=== PATIENT | female | born 1970 | race Caucasian/White ===

== ENCOUNTER 2017-06-17 05:12 | Emergency (ER) | payer BC ==
[2017-06-17 05:20] VITALS: BP 138/70; PULSE 78; RESP 20; TEMP 98
[2017-06-17] MEDS ORDERED: ONDANSETRON ODT 4 MG TAB PO STA (05:38)
--- NOTE | 2017-06-17 05:43 | ED ---
ENT HPI - General Chief complaint: ENT Stated complaint: nose bleed Time Seen by Provider: 06/17/17 05:23 Source: patient, family Mode of arrival: ambulatory Limitations: no limitations - History of Present Illness Initial comments: 47 years old presents with the nosebleed patient was seen in the ER earlier today the afternoon one side of the nose was bleeding packing was done with the infusion therapy device taken it started bleeding from the other side now both sides have inflatable devices arriving no cyanosis patient feels it is some bleeding in the back of the throat, patient is not on any blood thinners and patient denies any trauma to the nose review of system is unremarkable otherwise - Related Data Home Medications Medication Instructions Recorded Confirmed Citrucel 1 appful PO DAILY 10/13/14 06/17/17 Fexofenadine HCl [Estelle Allergy] 180 mg PO DAILY 10/13/14 06/17/17 Fluticasone Nasal [place] [Flonase 1 spr EA NOSTRIL QAM 10/13/14 06/17/17 Nasal [place]] Lansoprazole [Lansoprazole] 30 mg PO BID 10/13/14 06/17/17 Meclizine [Antivert] 25 mg PO DIRECTED PRN 10/13/14 06/17/17 Montelukast [Singulair] 10 mg PO HS 10/13/14 06/17/17 Testosterone Cypionate 0.5 ml INJ [id number] 10/13/14 06/17/17 [Depo-Testosterone] Allergies Allergy/AdvReac Type Severity Reaction Status Date / Time azithromycin Allergy Unknown Verified 06/17/17 05:28 clindamycin Allergy Chest Pain Verified 06/17/17 05:28 levofloxacin [From Levaquin] Allergy Unknown Verified 06/17/17 05:28 morphine Allergy Unknown Verified 06/17/17 05:28 Penicillins Allergy Chest Pain Verified 06/17/17 05:28 Review of Systems ROS Statement: Those systems with pertinent positive or pertinent negative responses have been documented in the HPI. ROS Other: All systems not noted in ROS Statement are negative. Past Medical History Past Medical History: GERD/Reflux Additional Past Medical History / Comment(s): IBS, ALLERGIES, History of Any Multi-Drug Resistant Organisms: None Reported Past Surgical History: Adenoidectomy, Breast Surgery, Ear Surgery Additional Past Surgical History / Comment(s): HAS HAD TUBES IN EARSX3, sinus surgery, double masectomy Past Anesthesia/Blood Transfusion Reactions: No Reported Reaction Past Psychological History: No Psychological Hx Reported Smoking Status: Former smoker Past Alcohol Use History: None Reported Past Drug Use History: None Reported - Past Family History Brother(s) Family Medical History: Cancer Additional Family Medical History / Comment(s): COLON Sister(s) Family Medical History: Cancer Additional Family Medical History / Comment(s): CERVICAL General Exam - General Exam Comments Initial Comments: General: The patient is awake and alert, in no distress, and does not appear acutely ill. Skin: Skin is warm and dry and no rashes or lesions are noted. Eye: Pupils are equal, round and reactive to light, extra-ocular movements are intact; there is normal conjunctiva bilaterally. Ears, nose, mouth and throat: Size of the nose have a rapid Rhinoin place, there is no obvious bleeding from the nostrils, examination of the oropharynx did not reveal any bleeding either . Neck: The neck is supple, there is no tenderness or JVD. Cardiovascular: There is a regular rate and rhythm. No murmur, rub or gallop is appreciated. Respiratory: To auscultation bilateral, no wheezing no rhonchi no distress respiratory rivera noticed Gastrointestinal: Soft, non-distended, non-tender abdomen without masses or organomegaly noted. There is no rebound or guarding present. Bowel sounds are unremarkable. Back: There is no tenderness to palpation in the midline. There is no obvious deformity. Musculoskeletal: Normal ROM, no tenderness, There is no pedal edema. There is no calf tenderness or swelling. No cords were appreciated. Neurological: CN II-XII intact, Cranial nerves III through XII are intact. There are no obvious motor or sensory deficits. Coordination appears grossly intact. Speech is normal. Psychiatric: Cooperative, appropriate mood & affect, normal judgment. Limitations: no limitations Course Vital Signs 06/17/17 05:13 Temperature 98 F Pulse Rate 78 Respiratory 20 Rate Blood Pressure 138/70 O2 Sat by Pulse 97 Oximetry Some initial the oropharynx did not reveal any new bleeding, family was able to verify that patient already has appointment with the ENT for recurrent to the ER if bleeding worsens or recurs otherwise follow-up with the Dr. Richard on Sunday Disposition Clinical Impression: Epistaxis Disposition: HOME SELF-CARE Condition: Good Instructions: Nosebleed (ED) Is patient prescribed a controlled substance at d/c from ED?: No If prescribed controlled substance>3 days was MAPS reviewed?: No When asked, does pt state using other controlled substances?: No Referrals: Laura Smallwood MD [Primary Care Provider] - 1-2 days
== END 2017-06-17 05:55 | disposition home or self-care (01) ==
LOC: EC 05:12
DX: R04.0 Epistaxis (principal); K21.9 Gastro-esophageal reflux disease without esophagitis; Z87.891 Personal history of nicotine dependence; Z79.51 Long term (current) use of inhaled steroids; Z79.899 Other long term (current) drug therapy; Z88.0 Allergy status to penicillin; Z88.1 Allergy status to other antibiotic agents; Z88.5 Allergy status to narcotic agent; Z91.09 Other allergy status, other than to drugs and biological substances; Z98.890 Other specified postprocedural states
CPT/HCPCS: 99283

== ENCOUNTER 2017-06-17 11:19 | Emergency (ER) | payer BC ==
[2017-06-17 11:42] VITALS: TEMP 98
[2017-06-17] MEDS ORDERED: HYDROcodone/APAP 5-325MG 1 EACH TAB PO STA (13:30)
[2017-06-17 14:05] VITALS: BP 150/88; PULSE 84; RESP 18
[2017-06-17] MEDS ORDERED: SODIUM CHLORIDE 0.9% 500 ML IV ONE (14:16)
[2017-06-17 14:33] LABS: Basophils % (A) 0 %; Eosinophils # (A) 0.1 k/uL (0-0.7); Eosinophils % (A) 1 %; HCT 45.8 % (34.0-46.0); HGB 14.9 gm/dL (11.4-16.0); Lymphocytes # (A) 1.3 k/uL (1.0-4.8); Lymphocytes % (A) 9 %; MCH 27.4 pg (25.0-35.0); MCHC 32.6 g/dL (31.0-37.0); MCV 84.1 fL (80.0-100.0); Mean Platelet Volume 6.7; Monocytes # (A) 0.5 k/uL (0-1.0); Monocytes % (A) 3 %; Neutrophils # (A) 13.4 k/uL (1.3-7.7); Neutrophils % (A) 87 %; Platelet Count 338 k/uL (150-450); RBC 5.45 m/uL (3.80-5.40); RDW 13.4 % (11.5-15.5); WBC 15.4 k/uL (3.8-10.6)
[2017-06-17 14:46] LABS: INR 1.1 (<1.2); Partial Thromboplastin Time 24.7 sec (22.0-30.0); Prothrombin Time 10.8 sec (9.0-12.0)
[2017-06-17] MEDS ORDERED: MORPHINE SULFATE 4 MG/0.8 ML SYRINGE (INJ) IVP STA ×2 (14:49→14:55)
[2017-06-17] MEDS ORDERED: ONDANSETRON 4 MG/2 ML VIAL IVP STA (15:06)
--- NOTE | 2017-06-17 15:40 | ED ---
ENT HPI - General Chief complaint: ENT Stated complaint: epistaxis Time Seen by Provider: 06/17/17 11:47 Source: patient Mode of arrival: ambulatory Limitations: no limitations - History of Present Illness Initial comments: 47-year-old female patient presents to the emergency department today for evaluation of epistaxis. Patient developed nosebleed yesterday, presented to [facility] and had packing to the bilateral nostrils. Patient states that the bleeding was coming out of the left side and no attempts at compression would stop it. States that she continued to have bleeding around the packing so she presented here around 4:00 this morning for further evaluation. Patient was discharged home and instructed to follow-up with Ear, Nose, and Throat specialty on Sunday. Patient presents today because she is continues to have drainage of blood down the back of her throat. She states that the packing is more saturated as well. She states she has been having some dizziness and headache today. Patient denies any history of nosebleeds or injury to the nose. Patient denies any recent rash, fever, chills, shortness breath, chest pain, abdominal pain, nausea, vomiting, diarrhea, constipation, back pain, numbness, tingling, dizziness, weakness, hematuria, dysuria, urinary urgency, urinary frequency, visual changes, or any other complaints. - Related Data Home Medications Medication Instructions Recorded Confirmed Citrucel 1 appful PO DAILY 10/13/14 06/17/17 Fexofenadine HCl [Estelle Allergy] 180 mg PO DAILY 10/13/14 06/17/17 Fluticasone Nasal [place] [Flonase 1 spr EA NOSTRIL QAM 10/13/14 06/17/17 Nasal [place]] Lansoprazole [Lansoprazole] 30 mg PO BID 10/13/14 06/17/17 Meclizine [Antivert] 25 mg PO DIRECTED PRN 10/13/14 06/17/17 Montelukast [Singulair] 10 mg PO HS 10/13/14 06/17/17 Testosterone Cypionate 0.5 ml INJ [id number] 10/13/14 06/17/17 [Depo-Testosterone] Allergies Allergy/AdvReac Type Severity Reaction Status Date / Time azithromycin Allergy Unknown Verified 06/17/17 11:40 clindamycin Allergy Chest Pain Verified 06/17/17 11:40 levofloxacin [From Levaquin] Allergy Unknown Verified 06/17/17 11:40 morphine Allergy Unknown Verified 06/17/17 11:40 Penicillins Allergy Chest Pain Verified 06/17/17 11:40 Review of Systems ROS Statement: Those systems with pertinent positive or pertinent negative responses have been documented in the HPI. ROS Other: All systems not noted in ROS Statement are negative. Past Medical History Past Medical History: GERD/Reflux Additional Past Medical History / Comment(s): IBS, ALLERGIES, History of Any Multi-Drug Resistant Organisms: None Reported Past Surgical History: Adenoidectomy, Breast Surgery, Ear Surgery Additional Past Surgical History / Comment(s): HAS HAD TUBES IN EARSX3, sinus surgery, double masectomy Past Anesthesia/Blood Transfusion Reactions: No Reported Reaction Past Psychological History: No Psychological Hx Reported Smoking Status: Former smoker Past Alcohol Use History: None Reported Past Drug Use History: None Reported - Past Family History Brother(s) Family Medical History: Cancer Additional Family Medical History / Comment(s): COLON Sister(s) Family Medical History: Cancer Additional Family Medical History / Comment(s): CERVICAL General Exam Limitations: no limitations General appearance: alert, in no apparent distress, other Eye exam: Present: normal appearance, PERRL, EOMI. Absent: scleral icterus, conjunctival injection, periorbital swelling ENT exam: Present: mucous membranes moist, other (Patient has rocket packing to bilateral nostrils, evidence of crusted blood.). Absent: normal exam Respiratory exam: Present: normal lung sounds bilaterally. Absent: respiratory distress, wheezes, rales, rhonchi, stridor Cardiovascular Exam: Present: regular rate, normal rhythm, normal heart sounds. Absent: systolic murmur, diastolic murmur, rubs, gallop, clicks Neurological exam: Present: alert, oriented X3, CN II-XII intact Psychiatric exam: Present: normal affect, normal mood Skin exam: Present: warm, dry, intact, normal color. Absent: rash Course Vital Signs 06/17/17 06/17/17 11:40 14:04 Temperature 98.0 F Pulse Rate 75 84 Respiratory 17 18 Rate Blood Pressure 139/86 150/88 O2 Sat by Pulse 97 97 Oximetry Medical Decision Making - Medical Decision Making 47-year-old female (undergoing gender reassignment to male) patient presented to the emergency department today for evaluation of continued nasal bleeding despite packing. Patient had anterior Rhino Rocket's to bilateral nostrils, inflated with saline by [facility]. Patient came in today reporting continued bleeding down the back of his throat. My attending Dr. Coles did speak to the bilingual research interviewer electronic component processor Dr. Valle who recommends replacing the packing with posterior and anterior Rhino Rockets. I did remove the anterior packing, removed approximately 7 mL of saline from each rocket. Since patient had bleeding initially from the left nostril only I did place the anterior posterior rocket to the left nare and inflated with approximately 10 mL of air. Patient was reevaluated after approximately 30 minutes and did have good bleeding cessation with this. Labs reviewed and were unremarkable. Patient does have prescription for pain medication and antibiotics. He is instructed to follow-up with ear nose and throat specialty tomorrow. Return parameters discussed in detail. He verbalizes understanding and agrees with this plan. - Lab Data Result diagrams: 06/17/17 14:25 Lab Results 06/17/17 06/17/17 Range/Units 14:25 14:25 WBC 15.4 H (3.8-10.6) k/uL RBC 5.45 H (3.80-5.40) m/uL Hgb 14.9 (11.4-16.0) gm/dL Hct 45.8 (34.0-46.0) % MCV 84.1 (80.0-100.0) fL MCH 27.4 (25.0-35.0) pg MCHC 32.6 (31.0-37.0) g/dL RDW 13.4 (11.5-15.5) % Plt Count 338 (150-450) k/uL Neutrophils % 87 % Lymphocytes % 9 % Monocytes % 3 % Eosinophils % 1 % Basophils % 0 % Neutrophils # 13.4 H (1.3-7.7) k/uL Lymphocytes # 1.3 (1.0-4.8) k/uL Monocytes # 0.5 (0-1.0) k/uL Eosinophils # 0.1 (0-0.7) k/uL Basophils # 0.0 (0-0.2) k/uL PT 10.8 (9.0-12.0) sec INR 1.1 (<1.2) APTT 24.7 (22.0-30.0) sec Disposition Clinical Impression: Epistaxis Disposition: HOME SELF-CARE Condition: Good Instructions: Nosebleed (ED) Additional Instructions: Take medications as directed. Follow-up with Ear, Nose and Throat specialist tomorrow. Return here immediately for any new, worsening, or concerning symptoms. Is patient prescribed a controlled substance at d/c from ED?: No Referrals: Laura Smallwood MD [Primary Care Provider] - 1-2 days Saúl Valle DO [Doctor of Osteopathic Medicine] - 1-2 days Time of Disposition: 15:39
== END 2017-06-17 15:50 | disposition home or self-care (01) ==
LOC: EC 11:19
DX: R04.0 Epistaxis (principal); K21.9 Gastro-esophageal reflux disease without esophagitis; K58.9 Irritable bowel syndrome, unspecified; Z87.891 Personal history of nicotine dependence; Z79.899 Other long term (current) drug therapy; Z79.51 Long term (current) use of inhaled steroids; Z88.0 Allergy status to penicillin; Z88.1 Allergy status to other antibiotic agents; Z88.5 Allergy status to narcotic agent
CPT/HCPCS: 36415; 85025; 85610; 85730; 99283; 30901; J2405; J2270

== ENCOUNTER → 2017-09-04 | Outpatient (CLI) | payer BC ==
[2017-09-04 13:46] LABS: Basophils % (A) 1 %; Eosinophils # (A) 0.1 k/uL (0-0.7); Eosinophils % (A) 1 %; HCT 45.6 % (34.0-46.0); HGB 14.7 gm/dL (11.4-16.0); Lymphocytes # (A) 1.1 k/uL (1.0-4.8); Lymphocytes % (A) 18 %; MCH 26.6 pg (25.0-35.0); MCHC 32.1 g/dL (31.0-37.0); MCV 82.8 fL (80.0-100.0); Mean Platelet Volume 6.8; Monocytes # (A) 0.5 k/uL (0-1.0); Monocytes % (A) 8 %; Neutrophils # (A) 4.4 k/uL (1.3-7.7); Neutrophils % (A) 70 %; Platelet Count 296 k/uL (150-450); RBC 5.51 m/uL (3.80-5.40); RDW 14.2 % (11.5-15.5); WBC 6.2 k/uL (3.8-10.6)
[2017-09-04 14:06] LABS: Potassium 5.3 mmol/L (3.5-5.1)
== END | disposition home or self-care (01) ==
LOC: LABPAT 12:40
PROVIDERS: ATTEND Obstetrics & Gynecology
DX: Z01.812 Encounter for preprocedural laboratory examination (principal); F64.1 Dual role transvestism; Z87.890 Personal history of sex reassignment
CPT/HCPCS: 80051; 82565; 82947; 84520; 85025; 87086

== ENCOUNTER 2017-09-10 05:53 | Observation (INO) | payer BC ==
[2017-09-05 08:33] VITALS: BMI 30.2
[~2017-09-10 05:53] MED LIST: DEXAMETHASONE SOD PHOSPHATE 10 MG/ML 1 ML VIAL IV ONE; HYDROmorphone 0.5 MG/0.5 ML SYRINGE IVP PRN; LIDOCAINE 1% 20 ML VIAL (10MG/ML) FOR IV START INTRADERMA PRN; MIDAZOLAM 2 MG/2 ML VIAL IV PRN; ONDANSETRON 4 MG/2 ML VIAL IVP ONE; ceFAZolin IN SWFI 2 GM/20 ML SYRINGE IVP ONE; fentaNYL (PF) 50 MCG/ML 2 ML AMP IV PRN
[2017-09-10] MEDS: LACTATED RINGERS 1,000 ML IV SCH ×3 (06:25→22:19)
[2017-09-10] MEDS ORDERED: PROPOFOL 10 MG/ML 20 ML VIAL IV ONE (07:30)
[2017-09-10] MEDS ORDERED: LIDOCAINE 1% INJ 10MG/ML (20 ML MDV) ONE (07:30)
[2017-09-10] MEDS ORDERED: ROCURONIUM BROMIDE 10 MG/ML 10 ML VIAL IV ONE (07:30)
[2017-09-10] MEDS ORDERED: SUCCINYLCHOLINE CHLORIDE 100 MG/5 ML SYR IV ONE (07:30)
[2017-09-10] MEDS ORDERED: fentaNYL (PF) 50 MCG/ML 2 ML AMP ONE (07:30)
[2017-09-10] MEDS ORDERED: MIDAZOLAM 2 MG/2 ML VIAL ONE (07:30)
[2017-09-10] MEDS ORDERED: GLYCOPYRROLATE 0.2 MG/ML 2 ML VIAL ONE (07:30)
[2017-09-10] MEDS ORDERED: ePHEDrine SULFATE/0.9% NACL/PF 50 MG/5 ML SYRINGE IV ONE (07:30)
[2017-09-10] MEDS ORDERED: HYDROmorphone (PF) 1 MG/ML ONE (07:30)
[2017-09-10] MEDS ORDERED: NEOSTIGMINE 1 MG/ML 10 ML VIAL ONE (07:30)
[2017-09-10] MEDS ORDERED: BUPIVACAINE (PF) 0.5% 30 ML VIAL SQ ONE ×2 (08:06→09:16)
--- NOTE | 2017-09-10 09:23 | P.OP ---
Date of Procedure: 09/10/17 Preoperative Diagnosis: Transition females male Postoperative Diagnosis: Same Procedure(s) Performed: Robotic-assisted laparoscopic assisted vaginal hysterectomy and bilateral salpingo-oophorectomy, cystoscopy Anesthesia: EMANUEL Surgeon: Shelia Niño Fence Erector Supervisor #1: Nicolas Roa Estimated Blood Loss (ml): 10 IV fluids (ml): 800 Urine output (ml): 150 Pathology: other (Uterus, bilateral tubes and ovaries) Condition: stable Disposition: PACU Operative Findings: Normal-appearing bilateral fallopian tubes, ovaries and uterus. Grossly normal- appearing appendix Description of Procedure: After the patient was met in the preoperative holding area and all questions were answered, he was taken to the operating room where anesthetic was administered without incident. He was positioned, prepped and draped in the low lithotomy position. The [facility] uterine manipulator was placed without difficulty. A Mohan catheter was placed. Attention was then turned to the left Portion of the procedure. A 12 mm supra umbilical skin incision was made. The anterior abdominal wall was elevated and the varies needle was inserted. Saline drip test indicated intraperitoneal placement. Initial filling pressure was 6 mm. The abdomen was insufflated to a total filling pressure of 15 mm. The varies needle was removed and the optical 12 trocar was then utilized to directly insert the camera into the peritoneal cavity. Intraperitoneal placement was noted. The patient was placed in steep Trendelenburg. Under direct visualization the right and left sided [place] ports were placed. A 10 mm accessory port was placed in the left upper quadrant. The da [place] was then docked per protocol. Monopolar [place] in arm 1. Bipolar [place] in arm 2. Robotic portion of the case then began. The pelvis was inspected and the above findings noted. The left infundibulopelvic ligament was sequentially cauterized and cut. The left round ligament was sequentially cauterized and cut. The anterior leaf of the broad ligament was incised down to the level of the bladder flap. The posterior leaf was carefully dissected away to allow for visualization of the uterine vasculature. Similarly the left labial pelvic ligament was sequentially cauterized and cut. The left round ligament was sequentially cauterized and cut. The left broad ligament was entered and incised to meet the previous dissection anteriorly. Ray-Juancho was introduced to allow for blunt dissection of the bladder anteriorly away from the uterine manipulator cuff at the cervix. The left uterine vasculature was then skeletonized and sequentially cauterized. The right uterine vasculature was sequentially cauterized and cut. Anterior colpotomy was then made and the manipulator cup was easily visualized. This was used as a guide to sequentially create the colpotomy. The uterus was then delivered into the vagina. Instruments were changed and the negative cut suture bulk delivery driver was in arm 1 and blunt graspers in arm 2. Self locking 0 Vicryl suture was then utilized to close the cuff in a running fashion. Once the cuff was closed was copiously suction irrigated and observed and no active bleeding was noted. All surgical sites were then observed and noted to be hemostatic. The course of the right and left ureters were visualized. Attention was then turned to cystoscopy. The Mohan catheter was removed. The diagnostic cystoscope was then introduced. Direct urine flow was noted from the both the right and left ureteral orifices. There was no blood or suture material noted in the bladder. Cystoscope was removed and the Mohan catheter was replaced. The vagina was inspected and no active bleeding was noted from the vaginal cuff. The robot was undocked and the abdomen desufflated of CO2 gas. The trochars were removed. Skin was then closed in a subcuticular fashion with 4-0 Vicryl suture. Dressings were applied. The patient was awoken from anesthetic without incident and transported recovery area in stable condition. All counts reported to me as correct by the operating room staff.
[2017-09-10] MEDS ORDERED: LACTATED RINGERS 1,000 ML IV ONE ×2 (11:00)
[2017-09-10] MEDS ORDERED: MECLIZINE 25 MG TAB PO PRN (11:55)
[2017-09-10] MEDS ORDERED: ONDANSETRON 4 MG/2 ML VIAL IVP PRN (11:55)
[2017-09-10] MEDS ORDERED: IBUPROFEN 600 MG TAB PO PRN (11:55)
[2017-09-10] MEDS ORDERED: METOCLOPRAMIDE 5 MG/ML 2 ML VIAL IVP PRN (11:55)
[2017-09-10] MEDS ORDERED: SENNOSIDES-DOCUSATE SODIUM 1 EACH TAB PO PRN (11:55)
[2017-09-10] MEDS ORDERED: ACETAMINOPHEN IV (For NPO) 1,000 MG in EMPTY BAG 1 BAG IVPB ONE (11:55)
[2017-09-10] MEDS ORDERED: Acetaminophen-Codeine 300-30mg TAB PO PRN ×2 (11:55)
[2017-09-10] MEDS ORDERED: SIMETHICONE 80 MG CHEWABLE PO PRN (11:55)
[2017-09-10] MEDS ORDERED: diphenhydrAMINE 50 MG/ML 1 ML VIAL IVP PRN (11:55)
[2017-09-10] MEDS: KETOROLAC 30 MG/ML 1 ML VIAL IVP PRN (18:19)
[2017-09-10] MEDS ORDERED: MONTELUKAST 10 MG TAB PO SCH (21:00)
[2017-09-10] MEDS ORDERED: FAMOTIDINE 20 MG TAB PO SCH (21:00)
[2017-09-10] MEDS ORDERED: FLUTICASONE 50MCG/SPRAY NASAL 16GM EA NOSTRIL SCH (21:00)
[2017-09-10] MEDS: PANTOPRAZOLE 40 MG TABLET PO SCH (21:02)
[2017-09-11] MEDS: KETOROLAC 30 MG/ML 1 ML VIAL IVP PRN ×2 (06:22→12:35)
[2017-09-11 07:05] LABS: Basophils % (A) 0 %; Eosinophils % (A) 0 %; HCT 41.1 % (34.0-46.0); HGB 13.1 gm/dL (11.4-16.0); Lymphocytes # (A) 1.2 k/uL (1.0-4.8); Lymphocytes % (A) 10 %; MCH 26.3 pg (25.0-35.0); MCHC 31.8 g/dL (31.0-37.0); MCV 82.7 fL (80.0-100.0); Mean Platelet Volume 6.7; Monocytes # (A) 0.7 k/uL (0-1.0); Monocytes % (A) 6 %; Neutrophils # (A) 9.6 k/uL (1.3-7.7); Neutrophils % (A) 83 %; Platelet Count 294 k/uL (150-450); RBC 4.96 m/uL (3.80-5.40); RDW 14.2 % (11.5-15.5); WBC 11.6 k/uL (3.8-10.6)
--- NOTE | 2017-09-11 07:55 | P.DS ---
Providers Date of admission: 09/10/17 20:03 Expected date of discharge: 09/11/17 Attending physician: Shelia Niño Primary care physician: Laura Smallwood - Discharge Diagnosis(es) (1) [id number] transgender person Current Visit: Yes Status: Acute Hospital Course: This is a 47-year-old individual who is transitioning female to male. He was admitted to undergo robotic-assisted laparoscopic assisted vaginal hysterectomy , bilateral salpingo-oophorectomy and cystoscopy. This procedure was completed on 09/10/2017. Please see the operative reports for details. It was uncomplicated and normal anatomy was appreciated. The evening of postoperative day 0 she was doing very well. His pain was well controlled and he was tolerating a general diet. By the morning of postoperative day #1 he is being able to ambulate and void spontaneously. There was scant vaginal bleeding. He had some abdominal distention but was passing gas. Postoperative laboratory data was stable. His pain was well-controlled with oral pain medications. He was therefore discharged home with routine instructions for postoperative care and follow-up. Procedures: Robotic-assisted laparoscopic assisted vaginal hysterectomy, bilateral salpingo- oophorectomy, cystoscopy. Patient Condition at Discharge: Good Plan - Discharge Summary New Discharge Prescriptions: New Ibuprofen 800 mg PO Q8HR PRN #30 tablet PRN Reason: Pain No Action Testosterone Cypionate [Depo-Testosterone] 200 mg INJ Q14D Montelukast [Singulair] 10 mg PO HS Meclizine [Antivert] 25 mg PO TID PRN PRN Reason: dizziness Lansoprazole 30 mg PO BID Fluticasone Nasal [place] [Flonase Nasal [place]] 2 spr EA NOSTRIL HS Citrucel 500 mg PO DAILY Loratadine-Pseudoeph 10-240 mg [Claritin-D 24 Hr] 1 tab PO DAILY Cholecalciferol [Vitamin D3] 5,000 unit PO DAILY Ranitidine HCl 150 mg PO BID Ez Tears 2 tab PO DAILY Discharge Medication List Citrucel 500 mg PO DAILY 10/13/14 [History] Fluticasone Nasal [place] [Flonase Nasal [place]] 2 spr EA NOSTRIL HS 10/13/14 [ History] Lansoprazole 30 mg PO BID 10/13/14 [History] Meclizine [Antivert] 25 mg PO TID PRN 10/13/14 [History] Montelukast [Singulair] 10 mg PO HS 10/13/14 [History] Testosterone Cypionate [Depo-Testosterone] 200 mg INJ Q14D 10/13/14 [History] Cholecalciferol [Vitamin D3] 5,000 unit PO DAILY 09/05/17 [History] Ez Tears 2 tab PO DAILY 09/05/17 [History] Loratadine-Pseudoeph 10-240 mg [Claritin-D 24 Hr] 1 tab PO DAILY 09/05/17 [ History] Ranitidine HCl 150 mg PO BID 09/05/17 [History] Ibuprofen 800 mg PO Q8HR PRN #30 tablet 09/11/17 [Rx] Follow up Appointment(s)/Referral(s): Shelia Niño MD [STAFF PHYSICIAN] - 2 Weeks Activity/Diet/Wound Care/Special Instructions: Follow-up in the office in 2 weeks postoperatively. May alternate Tylenol Extra Strength with Motrin 800 mg for pain as needed. Call the office with any concerning signs or symptoms including fever greater than 100.5, heavy vaginal bleeding, severe abdominal or pelvic pain, redness or foul drainage from the incisions, redness or swelling of the lower extremities. Nothing in the vagina for 8 weeks post operatively. Discharge Disposition: HOME SELF-CARE
[2017-09-11 08:59] VITALS: BP 113/77; PULSE 90; RESP 18; TEMP 98.1
[2017-09-11] MEDS ORDERED: EZ TEARS PO SCH (09:00)
[2017-09-11] MEDS: PANTOPRAZOLE 40 MG TABLET PO SCH (09:15)
== END 2017-09-11 13:17 | disposition home or self-care (01) ==
LOC: OR 05:53 → 6PED 11:55 → OR 20:03
PROVIDERS: ADMIT Obstetrics & Gynecology; ATTEND Obstetrics & Gynecology
DX: F64.1 Dual role transvestism (principal); Z87.890 Personal history of sex reassignment; Z90.13 Acquired absence of bilateral breasts and nipples; E78.5 Hyperlipidemia, unspecified; Z79.890 Hormone replacement therapy; Z79.51 Long term (current) use of inhaled steroids; Z79.899 Other long term (current) drug therapy; Z88.0 Allergy status to penicillin; Z88.1 Allergy status to other antibiotic agents; Z88.5 Allergy status to narcotic agent; Z87.891 Personal history of nicotine dependence; Z83.49 Family history of other endocrine, nutritional and metabolic diseases; Z82.69 Family history of other diseases of the musculoskeletal system and connective tissue; Z80.49 Family history of malignant neoplasm of other genital organs; Z82.49 Family history of ischemic heart disease and other diseases of the circulatory system
CPT/HCPCS: 58552; S2900; 81025; 84132; 85025; 86850; 86900; 86901; 88307

== ENCOUNTER 2018-03-15 14:42 | Emergency (ER) | payer BC ==
[2018-03-15] MEDS ORDERED: ONDANSETRON 4 MG/2 ML VIAL IVP STA (15:37)
--- NOTE | 2018-03-15 15:43 | ED ---
General Adult HPI - General Chief complaint: Abdominal Pain Stated complaint: Recheck, abd pain Time Seen by Provider: 03/15/18 14:53 Source: patient, RN notes reviewed Mode of arrival: ambulatory - History of Present Illness Initial comments: 48 year old female presents to the emergency department for a chief complaint of abdominal pain. Patient states this has been ongoing for the past 2 days. Patient states she initially felt nauseous 2 days ago and started to have right lower quadrant pain. Patient was seen at the clinic today in the emergency for appendicitis. Patient does state the pain is also somewhat in the left lower quadrant. Patient has been having normal bowel movements. Patient states the pain is exacerbated when eating. Patient denies any alleviating factors. Patient has no other complaints at this time including shortness of breath, chest pain, headache, or visual changes. - Related Data Home Medications Medication Instructions Recorded Confirmed Lansoprazole 30 mg PO BID 10/13/14 03/15/18 Meclizine [Antivert] 25 mg PO TID PRN 10/13/14 03/15/18 Montelukast [Singulair] 10 mg PO HS 10/13/14 03/15/18 Testosterone Cypionate 200 mg INJ Q14D 10/13/14 03/15/18 [Depo-Testosterone] Cholecalciferol [Vitamin D3] 5,000 unit PO DAILY 09/05/17 03/15/18 Ranitidine HCl 150 mg PO DAILY 09/05/17 03/15/18 Previous Rx's Medication Instructions Recorded Dicyclomine [Bentyl] 20 mg PO TID #10 tablet 03/15/18 Ondansetron [Zofran ODT] 4 mg PO Q8HR PRN #15 tab 03/15/18 Allergies Allergy/AdvReac Type Severity Reaction Status Date / Time azithromycin Allergy sores on Verified 03/15/18 15:10 tongue levofloxacin [From Levaquin] Allergy sores on Verified 03/15/18 15:10 tongue sulfamethoxazole Allergy Anaphylaxis Verified 03/15/18 15:10 [From Bactrim] trimethoprim [From Bactrim] Allergy Anaphylaxis Verified 03/15/18 15:10 clindamycin AdvReac Chest Pain Verified 03/15/18 15:10 morphine AdvReac Vomiting Verified 03/15/18 15:10 Penicillins AdvReac Chest Pain Verified 01/25/19 15:10 Review of Systems ROS Statement: Those systems with pertinent positive or pertinent negative responses have been documented in the HPI. ROS Other: All systems not noted in ROS Statement are negative. Past Medical History Past Medical History: GERD/Reflux Additional Past Medical History / Comment(s): IBS, ALLERGIES, History of Any Multi-Drug Resistant Organisms: None Reported Past Surgical History: Adenoidectomy, Breast Surgery, Ear Surgery Additional Past Surgical History / Comment(s): HAS HAD TUBES IN EARSX3, sinus surgery, double masectomy Past Anesthesia/Blood Transfusion Reactions: No Reported Reaction Past Psychological History: No Psychological Hx Reported Smoking Status: Former smoker Past Alcohol Use History: None Reported Past Drug Use History: None Reported - Past Family History Brother(s) Family Medical History: Cancer Additional Family Medical History / Comment(s): COLON Sister(s) Family Medical History: Cancer Additional Family Medical History / Comment(s): CERVICAL General Exam General appearance: alert, in no apparent distress Head exam: Present: atraumatic, normocephalic, normal inspection Eye exam: Present: normal appearance, PERRL, EOMI. Absent: scleral icterus, conjunctival injection, periorbital swelling ENT exam: Present: normal exam, mucous membranes moist Neck exam: Present: normal inspection, full ROM. Absent: tenderness, meningismus, lymphadenopathy Respiratory exam: Present: normal lung sounds bilaterally. Absent: respiratory distress, wheezes, rales, rhonchi, stridor Cardiovascular Exam: Present: regular rate, normal rhythm, normal heart sounds. Absent: systolic murmur, diastolic murmur, rubs, gallop, clicks GI/Abdominal exam: Present: soft, tenderness (Tenderness noted in the right lower quadrant at McBurney point, negative Rovsing or obturator. No rebound tenderness. No right upper quadrant tenderness, negative Payne sign. Minimal left lower quadrant tenderness without guarding), normal bowel sounds. Absent: distended, guarding, rebound, rigid Neurological exam: Present: alert, oriented X3, CN II-XII intact Psychiatric exam: Present: normal affect, normal mood Course Vital Signs 03/15/18 03/15/18 14:47 16:00 Temperature 97.7 F Pulse Rate 92 85 Respiratory 20 20 Rate Blood Pressure 121/83 130/86 O2 Sat by Pulse 99 99 Oximetry Medical Decision Making - Lab Data Result diagrams: 03/15/18 15:05 03/15/18 15:05 Lab Results 03/15/18 03/15/18 03/15/18 Range/Units 15:05 15:05 16:00 WBC 5.6 (3.8-10.6) k/uL RBC 5.75 H (3.80-5.40) m/uL Hgb 14.9 (11.4-16.0) gm/dL Hct 46.9 H (34.0-46.0) % MCV 81.5 (80.0-100.0) fL MCH 25.8 (25.0-35.0) pg MCHC 31.7 (31.0-37.0) g/dL RDW 14.8 (11.5-15.5) % Plt Count 324 (150-450) k/uL Neutrophils % 67 % Lymphocytes % 22 % Monocytes % 6 % Eosinophils % 3 % Basophils % 1 % Neutrophils # 3.7 (1.3-7.7) k/uL Lymphocytes # 1.2 (1.0-4.8) k/uL Monocytes # 0.3 (0-1.0) k/uL Eosinophils # 0.2 (0-0.7) k/uL Basophils # 0.0 (0-0.2) k/uL Polychromasia Present Sodium 138 (137-145) mmol/L Potassium 4.8 (3.5-5.1) mmol/L Chloride 103 (98-107) mmol/L Carbon Dioxide 27 (22-30) mmol/L Anion Gap 8 mmol/L BUN 14 (7-17) mg/dL Creatinine 0.82 (0.52-1.04) mg/dL Est GFR (CKD-EPI)AfAm >90 (>60 ml/min/1.73 sqM) Est GFR (CKD-EPI)NonAf 86 (>60 ml/min/1.73 sqM) Glucose 81 (74-99) mg/dL Calcium 8.9 (8.4-10.2) mg/dL Total Bilirubin 0.8 (0.2-1.3) mg/dL AST 58 H (14-36) U/L ALT 42 (9-52) U/L Alkaline Phosphatase 58 (38-126) U/L Total Protein 7.7 (6.3-8.2) g/dL Albumin 4.4 (3.5-5.0) g/dL Amylase 37 (30-110) U/L Lipase 36 (23-300) U/L Urine Color Urine Appearance (Clear) Urine pH (5.0-8.0) Ur Specific [place] (1.001-1.035) Urine Protein (Negative) Urine Glucose (UA) (Negative) Urine Ketones (Negative) Urine Blood (Negative) Urine Nitrite (Negative) Urine Bilirubin (Negative) Urine Urobilinogen (<2.0) mg/dL Ur Leukocyte Esterase (Negative) Urine HCG, Qual Not Detected (Not Detectd) 03/15/18 Range/Units 16:00 WBC (3.8-10.6) k/uL RBC (3.80-5.40) m/uL Hgb (11.4-16.0) gm/dL Hct (34.0-46.0) % MCV (80.0-100.0) fL MCH (25.0-35.0) pg MCHC (31.0-37.0) g/dL RDW (11.5-15.5) % Plt Count (150-450) k/uL Neutrophils % % Lymphocytes % % Monocytes % % Eosinophils % % Basophils % % Neutrophils # (1.3-7.7) k/uL Lymphocytes # (1.0-4.8) k/uL Monocytes # (0-1.0) k/uL Eosinophils # (0-0.7) k/uL Basophils # (0-0.2) k/uL Polychromasia Sodium (137-145) mmol/L Potassium (3.5-5.1) mmol/L Chloride (98-107) mmol/L Carbon Dioxide (22-30) mmol/L Anion Gap mmol/L BUN (7-17) mg/dL Creatinine (0.52-1.04) mg/dL Est GFR (CKD-EPI)AfAm (>60 ml/min/1.73 sqM) Est GFR (CKD-EPI)NonAf (>60 ml/min/1.73 sqM) Glucose (74-99) mg/dL Calcium (8.4-10.2) mg/dL Total Bilirubin (0.2-1.3) mg/dL AST (14-36) U/L ALT (9-52) U/L Alkaline Phosphatase (38-126) U/L Total Protein (6.3-8.2) g/dL Albumin (3.5-5.0) g/dL Amylase (30-110) U/L Lipase (23-300) U/L Urine Color Yellow Urine Appearance Clear (Clear) Urine pH 6.5 (5.0-8.0) Ur Specific [place] 1.019 (1.001-1.035) Urine Protein Trace H (Negative) Urine Glucose (UA) Negative (Negative) Urine Ketones 1+ H (Negative) Urine Blood Negative (Negative) Urine Nitrite Negative (Negative) Urine Bilirubin Negative (Negative) Urine Urobilinogen 2.0 (<2.0) mg/dL Ur Leukocyte Esterase Negative (Negative) Urine HCG, Qual (Not Detectd) Disposition Clinical Impression: Abdominal pain Disposition: HOME SELF-CARE Condition: Good Instructions (If sedation given, give patient instructions): Abdominal Pain (ED ) Additional Instructions: Please take Motrin and Tylenol for pain. Please follow-up with primary care or GI in 1-2 days. Return to the emergency department if you have any worsening symptoms. Prescriptions: Dicyclomine [Bentyl] 20 mg PO TID #10 tablet Ondansetron [Zofran ODT] 4 mg PO Q8HR PRN #15 tab PRN Reason: Nausea Is patient prescribed a controlled substance at d/c from ED?: No Referrals: Larua Smallwood MD [Primary Care Provider] - 1-2 days Sully Quinn MD [STAFF PHYSICIAN] - 1-2 days Time of Disposition: 18:52
[2018-03-15 16:31] LABS: Appearance,Urine Clear (Clear); Bilirubin,Urine Negative (Negative); Blood,Urine Negative (Negative); Color,Urine Yellow; Glucose,Urine (UA) Negative (Negative); Ketones,Urine 1+ (Negative); Leukocyte Esterase,Urine Negative (Negative); Nitrite,Urine Negative (Negative); PH, Urine 6.5 (5.0-8.0); Protein,Urine Trace (Negative); Specific Gravity,Urine 1.019 (1.001-1.035)
[2018-03-15 16:34] LABS: Basophils % (A) 1 %; Eosinophils # (A) 0.2 k/uL (0-0.7); Eosinophils % (A) 3 %; HCT 46.9 % (34.0-46.0); HGB 14.9 gm/dL (11.4-16.0); Lymphocytes # (A) 1.2 k/uL (1.0-4.8); Lymphocytes % (A) 22 %; MCH 25.8 pg (25.0-35.0); MCHC 31.7 g/dL (31.0-37.0); MCV 81.5 fL (80.0-100.0); Mean Platelet Volume 6.1; Monocytes # (A) 0.3 k/uL (0-1.0); Monocytes % (A) 6 %; Neutrophils # (A) 3.7 k/uL (1.3-7.7); Neutrophils % (A) 67 %; Platelet Count 324 k/uL (150-450); RBC 5.75 m/uL (3.80-5.40); RDW 14.8 % (11.5-15.5); WBC 5.6 k/uL (3.8-10.6)
[2018-03-15 16:40] LABS: ALT 42 U/L (9-52); AST 58 U/L (14-36); Albumin 4.4 g/dL (3.5-5.0); Alkaline Phosphatase 58 U/L (38-126); Amylase 37 U/L (30-110); Anion Gap 8 mmol/L; Blood Urea Nitrogen 14 mg/dL (7-17); Calcium 8.9 mg/dL (8.4-10.2); Carbon Dioxide 27 mmol/L (22-30); Chloride 103 mmol/L (98-107); Glucose 81 mg/dL (74-99); Lipase 36 U/L (23-300); Potassium 4.8 mmol/L (3.5-5.1); Sodium 138 mmol/L (137-145); Total Bilirubin 0.8 mg/dL (0.2-1.3); Total Protein 7.7 g/dL (6.3-8.2)
[2018-03-15 16:49] LABS: Polychromasia Present
--- NOTE | 2018-03-15 18:18 | CT ---
EXAMINATION TYPE: CT abdomen pelvis w con DATE OF EXAM: 03/15/2018 COMPARISON: 01/12/2012 HISTORY: Abdominal pain and vomiting CT DLP: 641.5 mGycm Automated exposure control for dose reduction was used. TECHNIQUE: Helical acquisition of images was performed from the lung bases through the pelvis. CONTRAST: Performed without Oral Contrast and with IV Contrast, patient injected with 100 mL of Isovue 300. FINDINGS: Lung bases are clear. There is no pleural effusion. Heart size is normal. Liver spleen pancreas gallbladder appear normal. Bile ducts are not dilated. There is no adrenal mass . 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 Kidneys show normal function with no hydronephrosis. Ureter s are not dilated. There is no retroperitoneal adenopathy. Bladder distends smoothly. There is no inguinal hernia. There is no free fluid in the pelvis. There i s no evidence of free air. There is no mesenteric edema or adenopathy. Appendix is not definitely see n. There is no sign of appendicitis. Lumbar vertebra have normal spacing and alignment. The posterior elements are intact. I see no bony d estructive process. IMPRESSION: NONACUTE ABDOMEN AND PELVIS. NO ADVERSE CHANGE COMPARED TO OLD EXAM.
[2018-03-15 19:16] VITALS: BP 129/85; PULSE 78; RESP 18; TEMP 98.1
== END 2018-03-15 19:15 | disposition home or self-care (01) ==
LOC: EDSEX → EC 14:42
DX: R10.31 Right lower quadrant pain (principal); R10.32 Left lower quadrant pain; R11.0 Nausea; K21.9 Gastro-esophageal reflux disease without esophagitis; Z79.899 Other long term (current) drug therapy; Z88.0 Allergy status to penicillin; Z88.1 Allergy status to other antibiotic agents; Z88.2 Allergy status to sulfonamides; Z88.5 Allergy status to narcotic agent; Z87.891 Personal history of nicotine dependence
CPT/HCPCS: 36415; 80053; 82150; 83690; 85025; 81003; 81025; 74177; 99284; Q9967